=== PATIENT | female | born 1965 | race Caucasian/White ===

== ENCOUNTER → 2018-07-16 | Outpatient (CLI) | payer BC ==
--- NOTE | 2018-07-16 16:50 | PCVCIMAG ---
APPROVED REPORT Study performed: 07/16/2018 13:52:31 EXAM: Comprehensive 2D, Doppler, and color-flow Echocardiogram Patient Location: Echo lab Status: routine BSA: 2.42 HR: 67 bpmBP: 112/76 mmHg Rhythm: NSR Other Information Study Quality: Adequate Indications Dizziness and Vertigo Palpitations Fatigue 2D Dimensions LVEF(%): 48.14 (>50%) IVSd: 12.48 (7-11mm) LVDd: 54.32 mm PWd: 11.05 (7-11mm)Ascending Ao: 36.94 (22-36mm) LVDs: 41.01 (25-40mm) Left Atrium: 41.02 (27-40mm) Aortic Root: 32.31 mm LV Single Plane 4CH: 51.11 % LV Single Plane 2CH: 58.34 %Macias's LVEF: 54.72 % Biplane EF: 54.3 % Volumes Left Atrial Volume (Systole) Single Plane 4CH: 74.56 mLSingle Plane 2CH: 93.41 mL LA ESV Index: 35.00 mL/m2 Aortic Valve AoV Peak Uri.: 1.30 m/s AO Peak Gr.: 6.80 mmHgLVOT Max P.09 mmHg LVOT Max V: 0.88 m/s Mitral Valve E/A Ratio: 0.6 MV Decel. Time: 336.92 ms MV E Max Uri.: 0.58 m/s MV A Uri.: 0.94 m/s IVRT: 138.41 ms Pulmonary Valve PV Peak Uri.: 0.95 m/sPV Peak Gr.: 3.61 mmHg Pulmonary Vein P Vein S: 0.21 m/sP Vein A: 0.32 m/s P Vein D: 0.36 m/sP Vein A Dur.: 145.3 msec P Vein S/D Ratio: 0.58 Tricuspid Valve TR Peak Uri.: 2.39 m/s TR Peak Gr.: 22.79 mmHg Left Ventricle The left ventricle is normal size. There is normal LV segmental wall motion. There is normal left ventricular wall thickness. Left ventricular systolic function is normal. The left ventricular ejection fraction is within the normal range. LVEF is 50%. Grade I - abnormal relaxation pattern. Right Ventricle The right ventricle is normal size. The right ventricular systolic function is normal. Atria Left atrium is mildly dilated. The right atrium size is normal. Aortic Valve The aortic valve is normal in structure. Mild aortic regurgitation. There is no aortic valvular stenosis. Mitral Valve The mitral valve is normal in structure. Mild mitral regurgitation. No evidence of mitral valve stenosis. Tricuspid Valve The tricuspid valve is normal in structure. Mild tricuspid regurgitation with PAP of 30 mmHg. Pulmonic Valve The pulmonary valve is normal in structure. Trace pulmonic regurgitation. Great Vessels The aortic root is normal in size. IVC is normal in size and collapses with >50% inspiration Pericardium There is no pericardial effusion. There is no pleural effusion. <Conclusion> The left ventricle is normal size. LVEF is 50%. Left atrium is mildly dilated. The aortic valve is normal in structure. Mild aortic regurgitation. The mitral valve is normal in structure. Mild mitral regurgitation. The tricuspid valve is normal in structure. Mild tricuspid regurgitation with PAP of 30 mmHg. The pulmonary valve is normal in structure. Trace pulmonic regurgitation. There is no pericardial effusion.
== END | disposition home or self-care (01) ==
LOC: PCVCIMAG 16:03
PROVIDERS: ATTEND Internal Medicine
DX: I08.3 Combined rheumatic disorders of mitral, aortic and tricuspid valves (principal); R53.83 Other fatigue; R42 Dizziness and giddiness; R00.2 Palpitations
CPT/HCPCS: 93306